=== PATIENT | male | born 1940 | race Caucasian/White ===

== ENCOUNTER 2021-02-12 08:26 | Outpatient (CLI) | payer MEDICARE ==
[2021-02-12] MEDS ORDERED: FLUT100B INH (09:19)
[2021-02-12] MEDS ORDERED: APIX5TAB PO (09:19)
[2021-02-12] MEDS ORDERED: METO-99 PO (09:19)
[2021-02-12] MEDS ORDERED: DIGO125T85 PO (09:19)
[2021-02-12] MEDS ORDERED: MELO15TA24 PO (09:19)
[2021-02-12] MEDS ORDERED: FURO40TA6 PO (09:19)
[2021-02-12] MEDS ORDERED: POTA20TA6 PO (09:19)
[2021-02-12] MEDS ORDERED: NITR0.3T5 SL (09:19)
[2021-02-12 09:28] LABS: MEAN CORPUSCULAR HEMOGLOBIN 37.1 pg (27.5-34.5); MEAN CORPUSCULAR HGB CONC 33.9 g/dL (33.2-36.2); MEAN PLATELET VOLUME 8.9 fL (7.4-10.4); PLATELET COUNT 255 x10^3/uL (130-400); RED BLOOD COUNT 3.19 x10^6/uL (4.38-5.82); RED CELL DISTRIBUTION WIDTH 15.1 % (9.4-14.8)
[2021-02-12 09:32] LABS: ALANINE AMINOTRANSFERASE 32 U/L (12-78); ALBUMIN 3.9 g/dL (3.4-5.0); ANION GAP 8 mmol/L (5-15); CHLORIDE 104 mmol/L (98-107)
[2021-02-12 09:34] LABS: ALKALINE PHOSPHATASE 77 U/L (45-117); BILIRUBIN,TOTAL 1.2 mg/dL (0.2-1.0); TOTAL PROTEIN 7.6 g/dL (6.4-8.2)
[2021-02-12 09:59] LABS: <PLATELET ESTIMATE> ADEQUATE; <PLT MORPHOLOGY> NORMAL PLT MORPH; ANISOCYTOSIS 1+; BAND#(MANUAL) 0.91 x10^3/uL; BANDS%(MANUAL) 11 % (0-7); EOS#(MANUAL) 0.08 x10^3/uL (0.0-0.4); EOS% (MANUAL) 1 % (1-7); LYMPH#(MANUAL) 1.58 x10^3/uL (1-3.4); LYMPHS% (MANUAL) 19 % (22-44); MONOS#(MANUAL) 0.58 x10^3/uL (0.3-2.7); MONOS% (MANUAL) 7 % (2-9); SEG#(MANUAL) 5.15 x10^3/uL (1.8-6.8); SEGS% (MANUAL) 62 % (42-75)
== END 2021-02-12 23:59 | disposition home or self-care (01) ==
LOC: STAR 08:26
PROVIDERS: ATTEND Orthopaedic Surgery
DX: Z01.818 Encounter for other preprocedural examination (principal); M16.12 Unilateral primary osteoarthritis, left hip; I48.91 Unspecified atrial fibrillation
CPT/HCPCS: 36415; 80053; 85025; 87081; 93005

== ENCOUNTER 2021-02-20 05:46 | Day surgery (SDC) | payer MEDICARE ==
[~2021-02-20] VITALS: Ht 177.8 cm; Wt 109.0 kg
[~2021-02-20 05:46] MED LIST: APIX5TAB PO; DIGO125T85 PO; FLUT100B INH; FURO40TA6 PO; MELO15TA24 PO; METO-99 PO; NITR0.3T5 SL; POTA-143 PO
[2021-02-20] MEDS ORDERED: aleeve PO (06:17)
[2021-02-20 06:18] VITALS: BP 135/87
[2021-02-20] MEDS ORDERED: LACTATED RINGERS 1,000 ML IV SCH (06:30)
[2021-02-20] MEDS ORDERED: CHLORHEXIDINE 15 ML UDC PO ONE (06:30)
[2021-02-20] MEDS ORDERED: ACETAMINOPHEN 500 MG TABLET PO ONE (06:30)
[2021-02-20] MEDS ORDERED: GABAPENTIN 300 MG CAPSULE PO ONE (06:30)
[2021-02-20] MEDS ORDERED: FENTANYL PF 250 MCG/5ML ONE (06:40)
[2021-02-20] MEDS ORDERED: KETOROLAC 30 MG/1 ML ONE (06:41)
[2021-02-20] MEDS ORDERED: TRANEXAMIC ACID 100 MG/ML, 10ML ONE ×2 (06:41)
[2021-02-20] MEDS ORDERED: SODIUM CHLORIDE 0.9% 50 ML ONE (06:42)
[2021-02-20] MEDS ORDERED: EPINEPHRINE 1 MG/ML, 1ML ONE (06:42)
[2021-02-20] MEDS ORDERED: VANCOMYCIN 1,000 MG ONE (06:42)
[2021-02-20] MEDS ORDERED: ROPIvacaine/PF 0.5%, 30 ML ONE (06:44)
[2021-02-20] MEDS ORDERED: ROPIvacaine/PF 0.5%, 20 ML ONE (06:44)
[2021-02-20] MEDS ORDERED: ONDANSETRON 4 MG TABLET PO PRN (07:00)
[2021-02-20] MEDS ORDERED: SENNA/DOCUSATE TABLET PO PRN (07:00)
[2021-02-20] MEDS ORDERED: CEFAZOLIN PMX 2GM/50ML 50 ML IVPB SCH (07:00)
[2021-02-20] MEDS ORDERED: NS + 20MEQ KCL 1,000 ML IV SCH (07:00)
[2021-02-20] MEDS ORDERED: MAGNESIUM HYDROXIDE 8%, 30ML UDC PO PRN (07:00)
[2021-02-20] MEDS ORDERED: ONDANSETRON 2MG/ML, 2ML IV PRN (07:00)
[2021-02-20] MEDS ORDERED: ZOLPIDEM 5MG TABLET PO PRN (07:00)
[2021-02-20] MEDS ORDERED: HYDROcodone/APAP 5/325 TABLET PO PRN (07:00)
[2021-02-20] MEDS ORDERED: DIPHENHYDRAMINE 25 MG CAPSULE PO PRN (07:00)
[2021-02-20] MEDS ORDERED: NITROGLYCERIN 0.3 MG SL PRN (07:00)
[2021-02-20] MEDS ORDERED: ACETAMINOPHEN 650 MG/20.3 ML UDC PO PRN (07:00)
[2021-02-20] MEDS ORDERED: OXYcodone IR 5MG TABLET PO PRN (07:00)
[2021-02-20] MEDS ORDERED: BISACODYL 10 MG SUPP PR PRN (07:00)
[2021-02-20] MEDS ORDERED: OXYcodone 5 MG/5 ML ORAL.SOL UDC PO PRN (07:30)
[2021-02-20] MEDS ORDERED: FENTANYL PF 100 MCG/2ML IV PRN (07:30)
[2021-02-20] MEDS ORDERED: PROMETHAZINE 25 MG/ML, 1ML IVPush PRN (07:30)
[2021-02-20] MEDS ORDERED: MEPERIDINE/PF 25MG/0.5ML IVPush PRN (07:30)
[2021-02-20] MEDS ORDERED: ACETAMINOPHEN 325 MG TABLET PO PRN (07:30)
[2021-02-20] MEDS ORDERED: ALBUTEROL SULFATE 2.5 MG/3 ML NPPB PRN (07:30)
[2021-02-20] MEDS ORDERED: LABETALOL 5MG/ML, 20ML IV PRN (07:30)
[2021-02-20] MEDS ORDERED: MIDAZOLAM 1 MG/ML, 2ML IV PRN (07:30)
[2021-02-20] MEDS ORDERED: HYDROmorphone 1 MG/ML, 1ML INJ IVPush PRN (07:30)
[2021-02-20] MEDS ORDERED: LIDOCAINE-MPF 2% ,5ML ONE ×2 (07:38→07:54)
[2021-02-20] MEDS ORDERED: ROCURONIUM 10MG/ML,5ML ONE (07:55)
[2021-02-20] MEDS ORDERED: CEFAZOLIN 1,000 MG ONE (07:55)
[2021-02-20] MEDS ORDERED: PROPOFOL 10 MG/ML, 20ML ONE (07:55)
[2021-02-20] MEDS ORDERED: NEOSTIGMINE 1 MG/ML, 10ML ONE (07:55)
[2021-02-20] MEDS ORDERED: GLYCOPYRROLATE 0.2MG/1ML, 5ML ONE (07:55)
[2021-02-20] MEDS ORDERED: ONDANSETRON 2MG/ML, 2ML ONE (07:55)
[2021-02-20] MEDS ORDERED: DEXAMETHASONE 4 MG/ML, 1ML ONE (07:55)
[2021-02-20] MEDS ORDERED: OXYcodone 5 MG/5 ML ORAL.SOL UDC ONE (08:25)
[2021-02-20] MEDS ORDERED: DIGOXIN 0.125 MG TABLET PO SCH (09:00)
[2021-02-20] MEDS ORDERED: DOCUSATE 100 MG CAPSULE PO SCH (09:00)
[2021-02-20] MEDS ORDERED: METOPROLOL TARTRATE 100 MG TAB PO SCH (09:00)
[2021-02-20] MEDS ORDERED: ASPIRIN 81 MG TABLET EC PO SCH (18:00)
[2021-02-21] MEDS ORDERED: DEXAMETHASONE 4 MG/ML, 1ML IVPush SCH (06:00)
== END 2021-02-20 15:25 | disposition home or self-care (01) ==
LOC: OUT 05:46
PROVIDERS: ATTEND Orthopaedic Surgery
DX: M16.12 Unilateral primary osteoarthritis, left hip (principal); M25.752 Osteophyte, left hip; I11.0 Hypertensive heart disease with heart failure; I50.9 Heart failure, unspecified; I42.9 Cardiomyopathy, unspecified; I48.20 Chronic atrial fibrillation, unspecified; J44.9 Chronic obstructive pulmonary disease, unspecified; Z20.822 Contact with and (suspected) exposure to COVID-19; Z79.01 Long term (current) use of anticoagulants; Z79.899 Other long term (current) drug therapy; Z88.0 Allergy status to penicillin
CPT/HCPCS: 27130; 72170; 73501; 87635; 97161; 97166; C1713; C1776; J0171; J0690; J1100; J1885; J2405; J2704; J2710; J2795; J3010; J3370; J7120; 76000